=== PATIENT | male | born 1990 | race Caucasian/White ===

== ENCOUNTER 2017-09-12 10:17 | Emergency (ER) | payer MEDICAID ==
[~2017-09-12] VITALS: Ht 180.3 cm; Wt 104.3 kg
[2017-09-12 10:44] VITALS: BP 132/92
[2017-09-12] MEDS ORDERED: KETOROLAC 30 MG/ML VIAL IM ONE (10:50)
[2017-09-12] MEDS ORDERED: DIAZEPAM 5 MG TAB PO ONE (10:50)
[2017-09-12 12:17] VITALS: BP 132/92
--- NOTE | 2017-09-12 12:18 | NUR ---
27 YO MALE BIB SELF FOR HEADACHE CHRONIC FOR FOUR DAYS. AWAKE AND ALERT NO ACUTE DISTRESS NO LIGHT SENSTIVITY.
--- NOTE | 2017-09-12 12:20 | NUR ---
Patient discharged with v/s stable. Written and verbal after care instructions given and explained. Patient alert, oriented and verbalized understanding of instructions. Ambulatory with steady gait. All questions addressed prior to discharge. ID band removed. Patient advised to follow up with PMD. Rx of NAPROSYN AND VALIUM given. Patient educated on indication of medication including possible reaction and side effects. Opportunity to ask questions provided and answered.
== END 2017-09-12 12:20 | disposition home or self-care (01) ==
LOC: MED 10:17
DX: R51 Headache (principal)
CPT/HCPCS: 70450; 96372; 99284; J1885

== ENCOUNTER 2018-02-22 23:44 | Emergency (ER) | payer MEDICAID ==
[~2018-02-22] VITALS: Ht 180.3 cm; Wt 102.1 kg
[2018-02-22 23:51] VITALS: BP 132/90
--- NOTE | 2018-02-22 23:53 | NUR ---
TO BED # 5 AMBULATORY, REPORT GIVEN TO PAULA ADLER.
--- NOTE | 2018-02-23 | NUR ---
Dr. Bustamante evaluating patient at bedside.
--- NOTE | 2018-02-23 00:02 | NUR ---
PATIENT IS A 27 Y/O MALE WHO PRESENTS TO THE ED C/O ANKLE PAIN. PT STATES THAT HE TRIPPED AND LANDED ON R ANKLE. PT REPORTS 9/10 ACHING R ANKLE PAIN THAT DOES NOT RADIATE. NOTED MILD SWELLING AND BRUISING. PT DENIES CP, SOB, N/V/D. PT AAOX4, RR EVEN/UNLABORED. PT REPOSITIONED FOR COMFORT, BED IN LOWEST POSITION. ER MD DR. RILEY NOTIFIED. WILL CONTINUE TO MONITOR.
[2018-02-23] MEDS ORDERED: IBUPROFEN 600 MG TAB PO ONE (00:35)
--- NOTE | 2018-02-23 01:14 | NUR ---
PATIENT D/C BY DR. RILEY.
[2018-02-23 01:15] VITALS: BP 129/81
--- NOTE | 2018-02-23 01:15 | NUR ---
Patient discharged with v/s stable. Written and verbal after care instructions given and explained. Patient alert, oriented and verbalized understanding of instructions. Ambulatory with steady gait. All questions addressed prior to discharge. ID band removed. Patient advised to follow up with PMD. Rx of NAPROSYN 500MG given. Patient educated on indication of medication including possible reaction and side effects. Opportunity to ask questions provided and answered.
--- NOTE | 2018-02-23 01:35 | NUR ---
Note sergioone in EDM - 02/23/18 at 0140 by [facility] Patient discharged with v/s stable. Written and verbal after care instructions given and explained. Patient alert, oriented and verbalized understanding of instructions. Ambulatory with steady gait. All questions addressed prior to discharge. ID band removed. Patient advised to follow up with PMD. Rx of NAPROSYN 500MG given. Patient educated on indication of medication including possible reaction and side effects. Opportunity to ask questions provided and answered.
== END 2018-02-23 01:15 | disposition home or self-care (01) ==
LOC: MED 23:44
DX: S93.402A Sprain of unspecified ligament of left ankle, initial encounter (principal); W10.9XXA Fall (on) (from) unspecified stairs and steps, initial encounter; Y93.89 Activity, other specified; Y99.8 Other external cause status; Y92.89 Other specified places as the place of occurrence of the external cause
CPT/HCPCS: 73610; 99284

== ENCOUNTER 2019-08-08 17:39 | Emergency (ER) | payer SELFPAY ==
[~2019-08-08] VITALS: Ht 182.9 cm; Wt 102.1 kg
[2019-08-08 17:49] VITALS: BP 133/72
--- NOTE | 2019-08-08 17:54 | NUR ---
PT AMBULATED TO ER BED 02
--- NOTE | 2019-08-08 17:55 | NUR ---
PATIENT PRESENTS TO ED WITH C/O DRY COUGH, CHILLS, RUNNY NOSE, SORE THROAT X 3 DAYS. PATIENT STATES SORE THROAT 7/10 AT THIS TIME; VSS; PATIENT POSITIONED FOR COMFORT; HOB ELEVATED; BEDRAILS UP X2; BED DOWN. ER MD MADE AWARE OF PT STATUS.
--- NOTE | 2019-08-08 18:45 | NUR ---
Patient being evaluated by DR. RILEY at bedside.
[2019-08-08 18:48] VITALS: BP 133/72
--- NOTE | 2019-08-08 18:48 | NUR ---
Patient discharged BY DR. RILEY. Written and verbal after care instructions given and explained. Rx of AUGMENTIN, CINTIA MAY given. Patient educated on indication of medication including possible reaction and side effects.All questions addressed prior to discharge. ID band removed. Patient advised to follow up with PMD.
== END 2019-08-08 18:48 | disposition home or self-care (01) ==
LOC: MED 17:39
DX: J20.9 Acute bronchitis, unspecified (principal)
CPT/HCPCS: 99283